=== PATIENT | female | born 2000 | race African-American/Black ===

== ENCOUNTER 2022-03-28 13:51 | Emergency (ER) | payer BC ==
[~2022-03-28] VITALS: Ht 167.6 cm; Wt 60.0 kg
[~2022-03-28 13:51] MED LIST: ALBUTEROL0.083 % IN; CEPHALEXIN500 MG OR; ELIDEL1 % EX; PENICILLN VK500 MG OR; ULTRAM50 MG OR
[2022-03-28 14:05] VITALS: BP 129/79
[2022-03-28 14:49] LABS: URINE BILIRUBIN - DIPSTICK NEGATIVE (NEGATIVE); URINE BLOOD DIPSTICK NEGATIVE (NEGATIVE); URINE COLOR YELLOW; URINE GLUCOSE - DIPSTICK NEGATIVE (NEGATIVE); URINE KETONE NEGATIVE (NEGATIVE); URINE LEUK ESTERASE NEGATIVE (NEGATIVE); URINE PROTEIN - DIPSTICK NEGATIVE (NEG-TRACE); URINE SPECIFIC GRAVITY >=1.030; URINE UROBILINOGEN - DIPSTICK 0.2 E.U./dL (0.2)
[2022-03-28 14:50] LABS: URINE NITRITE - DIPSTICK NEGATIVE (Negative)
[2022-03-28 15:01] VITALS: BP 114/78
[2022-03-28] MEDS ORDERED: FIORICET PO (15:50)
[2022-03-28] MEDS ORDERED: NAPROXEN500 MG PO (15:50)
== END 2022-03-28 17:06 | disposition home or self-care (01) | DRG 103 ==
LOC: ED 13:51
PROVIDERS: Nurse Practitioner
DX: R51.9 Headache, unspecified (principal)